=== PATIENT | female | born 1960 | race Caucasian/White ===

== ENCOUNTER 2016-10-13 12:04 | Emergency (ER) | payer MEDICAID ==
[~2016-10-13] VITALS: Ht 157.5 cm; Wt 659.3 kg
[~2016-10-13 12:04] MED LIST: AMLO-27 PO; ATEN50TA2 PO; VENL75TA17 PO
[2016-10-13 12:17] VITALS: BP 146/79
[2016-10-13] MEDS ORDERED: NACL 0.9% 1,000 ML IV SCH (12:29)
[2016-10-13] MEDS ORDERED: ONDANSETRON 4 MG/2 ML VIAL IVP ONE (12:30)
--- NOTE | 2016-10-13 12:31 | NUR ---
Patient to bed 03.
--- NOTE | 2016-10-13 12:33 | NUR ---
Dr. Recinos evaluating patient at bedside.
--- NOTE | 2016-10-13 12:40 | NUR ---
PATIENT PRESENTS TO ED WITH C/O VERTIGO WITH NAUSEA AND HEADACHE X TODAY---- ADDS IS FEELING PALPITATIONS---LEFT FOOT PAIN , INJURED FOOT X4 DAYS AGO HX--MITRAL VALVE PROLAPSE, EMPHYSEMA,PTSD, IBS, HTN, ANXIETY, DEPRESSION RX---COGARD, EFFEXOR, ALBUTEROL, DENIES V/D; SKIN IS PINK/WARM/DRY; AAOX4 WITH EVEN AND STEADY GAIT; LUNGS CLEAR BL; HR EVEN AND REGULAR; PT DENIES ANY FEVER, CP, SOB, OR COUGH AT THIS TIME; PATIENT STATES PAIN OF 6/10 AT THIS TIME; VSS; PATIENT POSITIONED FOR COMFORT; HOB ELEVATED; BEDRAILS UP X2; BED DOWN. ER MD MADE AWARE OF PT STATUS.
--- NOTE | 2016-10-13 12:45 | NUR ---
PATIENT ELOPED FROM FACILITY. DISCHARGE INSTRUCTIONS NOT GIVEN TO PATIENT. DR. GODDARD NOTIFIED.
== END 2016-10-13 12:45 | disposition left against medical advice (07) ==
LOC: MED 12:04
DX: S90.32XA Contusion of left foot, initial encounter (principal); F41.9 Anxiety disorder, unspecified; I10 Essential (primary) hypertension; F17.210 Nicotine dependence, cigarettes, uncomplicated; Z88.2 Allergy status to sulfonamides; Z88.8 Allergy status to other drugs, medicaments and biological substances; W04.XXXA Fall while being carried or supported by other persons, initial encounter; Y93.89 Activity, other specified; Y92.89 Other specified places as the place of occurrence of the external cause; Y99.8 Other external cause status
CPT/HCPCS: 93005; 99283

== ENCOUNTER 2017-10-03 08:53 | Inpatient (IN) | payer MEDICAID ==
[~2017-10-03] VITALS: Ht 154.9 cm; Wt 68.0 kg
--- NOTE | 2017-10-03 08:53 | NUR ---
PATIENT WHEELCHAIR ASSISTED TO BED 10 AT Addendum: 10/03/17 at 0858 by VENUS PATIENT WHEELCHAIR ASSISTED TO BED 10 AT THIS TIME.
[2017-10-03 08:55] VITALS: BP 156/78
--- NOTE | 2017-10-03 09:04 | NUR ---
57 YO F TO ER WITH C/O CP AND GENERALIZED BODY ACHES. ALERT AND ORIENTED, FEBRILE UPON TRIAGE, HOT TO TOUCH, 100.7. PT STATES THAT SHE INJECTED SPEED AND BONG WATER X6HRS AGO, PAIN 10/10. PT DENIES ANY FALLS. PT STATED DEFICATING SELF PRIOR TO ER ARRIVAL. PERRL SLUGGISH REACTION 3MM. LS CLEAR, BS PRESENT AND HYPOACTIVE. HX: MITRAL VALUVE PROLAPS, hysterectomy, emphysema, IBS MED: NONE
[2017-10-03] MEDS ORDERED: KETOROLAC 30 MG/ML VIAL IVP ONE (09:25)
[2017-10-03] MEDS ORDERED: LORazepam 2 MG/ML VIAL IVP ONE (09:25)
[2017-10-03] MEDS ORDERED: ASPIRIN 325 MG TAB PO ONE (09:25)
[2017-10-03 09:47] LABS: BASOPHILS % (AUTO) 0.1 % (0.0-2.0); EOSINOPHILS % (AUTO) 0.1 % (0.0-4.0); HEMATOCRIT 38.1 % (36-48); HEMOGLOBIN 12.4 g/dL (12.0-16.0); LYMPHOCYTES # (AUTO) 0.1 K/uL (2.5-16.5); MEAN CORPUSCULAR HEMOGLOBIN 28 pg (27-31); MEAN CORPUSCULAR HGB CONC 33 g/dL (33-37); MEAN CORPUSCULAR VOLUME 85.3 fL (80-94); MONOCYTES % (AUTO) 0.2 % (1.7-9.3); NEUTROPHILS # (AUTO) 11.3 K/uL (1.8-7.7); NEUTROPHILS % (AUTO) 98.6 % (42.2-75.2); PLATELET COUNT (AUTO) 164 K/uL (140-450); RED BLOOD CELL COUNT(AUTO) 4.47 MIL/uL (4.20-5.40); RED CELL DISTRIBUTION WIDTH 14.6 % (11.6-13.7); WHITE BLOOD COUNT (AUTO) 11.5 K/uL (4.8-10.8)
[2017-10-03] MEDS ORDERED: ACETAMINOPHEN EXTRA STRENGTH 500 MG TAB ONE (09:56)
--- NOTE | 2017-10-03 09:58 | NUR ---
PT MEDICATED WITH TYLENOL 1000MG PER PROTOCOL FOR TEMP OF 100.7.
[2017-10-03 10:04] LABS: ALBUMIN 2.4 g/dL (3.4-5.0); ANION GAP 12.7 (8-16); CREATININE 0.9 mg/dL (0.6-1.3); TOTAL BILIRUBIN 1.1 mg/dL (0.0-1.0)
[2017-10-03 10:05] LABS: POTASSIUM 2.7 mmol/L (3.5-5.1)
[2017-10-03] MEDS ORDERED: POTASSIUM CHLORIDE 10 MEQ TABER PO ONE ×2 (10:10)
[2017-10-03 10:16] LABS: ACETAMINOPHEN 0.8 ug/ml (10-30)
[2017-10-03 10:18] LABS: SALICYLATE < 2.8 mg/dL (2.8-20.0)
[2017-10-03 10:31] LABS: PROTHROMBIN TIME 11.6 secs (10.8-13.4)
[2017-10-03] MEDS ORDERED: NACL 0.9% 2,000 ML IV SCH (10:44)
[2017-10-03] MEDS ORDERED: VANCOMYCIN 1,000 MG in DEXTROSE 5% 250 ML IV ONE (10:45)
[2017-10-03] MEDS ORDERED: POTASSIUM CHL 20 MEQ/NACL 0.9% 1,000 ML IV ONE (10:45)
[2017-10-03] MEDS ORDERED: PIPERACILLIN/TAZOBACTAM 3.375 GM in DEXT 5% MINI-BAG PLUS 50 ML IV ONE (10:45)
[2017-10-03] MEDS ORDERED: MAG SULF 2000 MG/WATER PREMIX 100 ML IV ONE (10:55)
--- NOTE | 2017-10-03 11:15 | NUR ---
# 14 FR STRAIGHT catheter utilizing sterile technique. Immediate return of 200 ml CLEAR YELLOW urine noted. Urine sample collected and sent to lab. Pt tolerated procedure WELL . Addendum: 10/03/17 at 1249 by MEDSnapp[facility]S PER VERBAL ORDER FROM DR MAURICIO
[2017-10-03] MEDS ORDERED: KETOROLAC 30 MG/ML VIAL IVP PRN (11:30)
[2017-10-03] MEDS ORDERED: HYDROcodone/APAP 7.5/325 MG 1 TAB PO PRN (11:30)
[2017-10-03] MEDS ORDERED: ACETAMINOPHEN 325 MG TAB PO PRN (11:30)
[2017-10-03] MEDS ORDERED: DOCUSATE SODIUM 100 MG GELCAP PO PRN (11:30)
[2017-10-03 11:31] LABS: APPEARANCE,URINE CLEAR (CLEAR); BILIRUBIN,URINE NEGATIVE (NEGATIVE); BLOOD, URINE TRACE-I (NEGATIVE); COLOR,URINE YELLOW (YELLOW); LEUKOCYTE ESTERASE ,URINE NEGATIVE (NEGATIVE); NITRITE, URINE NEGATIVE (NEGATIVE); PH,URINE 6.5 (5.0-9.0); UGLUCOSE NEGATIVE (NEGATIVE)
[2017-10-03 11:38] LABS: RBC,URINE 0-5 (RARE) /HPF (0-5); WBC,URINE 0-5 (RARE) /HPF (0-5)
[2017-10-03] MEDS ORDERED: VANCOMYCIN 1,000 MG in DEXTROSE 5% 250 ML IV SCH (11:47)
[2017-10-03] MEDS: NACL 0.9% 1,000 ML IV SCH ×2 (11:59→21:28)
[2017-10-03] MEDS ORDERED: PIPERACILLIN/TAZOBACTAM 3.375 GM VIAL IV ONE (12:13)
--- NOTE | 2017-10-03 12:15 | NUR ---
PT APPEARS TO BE SLEEPING IN NO APPARENT DISTRESS. WILL CONTINUE TO MONITOR
--- NOTE | 2017-10-03 12:25 | NUR ---
RECEIVED PT FROM ER NURSEBRIGIDO VIA GERMÁN, PT IS ASLEEP WITH AN IV LINES ON THE RIGHT FA G.22 AND RIGHT UPPER ARM G.22. ZOSYN AND MAGNESIUM WAS CONTINUED. VITAL SIGNS TAKEN AND IS STABLE. PT HAS IV FLUID OF NS AT 100ML/HR GOING AT A VOLUME OF 100ML. SIDE RAILS ARE UP AND ARM BAND IN PLACED. CALL LIGHT WITHIN REACH AND WILL CONTINUE TO MONITOR.
[2017-10-03 12:28] LABS: CHOL/HDL RATIO 2.5 (1-4.5); HDL CHOLESTEROL 52 mg/dL (40-60); LDL (CALC) 67 mg/dL (60-100); PHOSPHORUS 2.8 mg/dL (2.5-4.9); TRIGLYCERIDES 53 mg/dL (30-150)
[2017-10-03 12:29] LABS: LIPASE 68 U/L (73-393); THYROID STIMULATING HORMONE 0.57 uIU/mL (0.34-3.74)
--- NOTE | 2017-10-03 12:40 | NUR ---
Patient will be admitted to care of DR MIDDLETON. Admited to TELE . Will go to room 121A . Belongings list completed. Report to JULISA ARRIETA .
--- NOTE | 2017-10-03 12:45 | NUR ---
MARISOL FROM LAB CALLED AND REPORTED A CRITICAL LAB RESULT OF THE LACTIC ACID 4.2.
--- NOTE | 2017-10-03 12:50 | NUR ---
REPORTED TO DR. CABELLO ABOUT THE CRITICAL LAB RESULT OF THE PT. DR. CABELLO ACKNOWLEDGED AND SAID THAT HE WILL PLACE AN ORDER.
[2017-10-03 13:01] LABS: BARBITURATE, URINE NEG. ng/ml (NEG <=200); BENZODIAZEPINE, URINE NEG. ng/mL (NEG <=200); CANNABINOID, URINE NEG. ng/mL (NEG <=50); COCAINE, URINE NEG. ng/mL (NEG <=300); OPIATE, URINE NEG. ng/mL (NEG <=2000); PHENCYCLIDINE SCREEN,URINE NEG. ng/mL (NEG <=25)
--- NOTE | 2017-10-03 14:00 | NUR ---
DR. CABELLO SAW AND SPOKE TO THE PT. PT IS NOT FULLY ALERT BUT RESPONDS APPROPRIATELY. NO SIGN OF DISTRESS NOTED. WILL CONTINUE TO MONITOR.
[2017-10-03] MEDS ORDERED: ATENOLOL 50 MG TAB PO SCH (14:08)
[2017-10-03] MEDS ORDERED: ATORVASTATIN 20 MG TAB PO SCH (14:09)
[2017-10-03] MEDS ORDERED: amLODIPine 5 MG TAB PO SCH (14:10)
[2017-10-03] MEDS ORDERED: VENLAFAXINE 37.5 MG TAB PO SCH (14:12)
[2017-10-03] MEDS ORDERED: KCL 20 MEQ/WATER INJ PREMIX 200 ML IV SCH (15:00)
--- NOTE | 2017-10-03 16:30 | NUR ---
PT IS ASLEEP AND VITAL SIGNS TAKEN, NO SIGN OF DISTRESS NOTED. CALL LIGHT WITHIN REACH AND WILL CONTINUE TO MONITOR.
--- NOTE | 2017-10-03 16:55 | NUR ---
ECHO IS BEING DONE TO THE PT. NO SIGN OF DISTRESS NOTED ON THE PT. WILL CONTINUE TO MONITOR.
--- NOTE | 2017-10-03 18:00 | NUR ---
ULTRASOUND OF THE ABDOMEN IS BEING DONE TO THE PT. PT IS ASLEEP AND NO SIGN OF DISTRESS NOTED. WILL MONITOR.
--- NOTE | 2017-10-03 19:20 | NUR ---
ENDORSED PT TO STAVE BOLT EQUALIZER NURSE, DIANE,FOR CONTINUITY OF CARE. PT IS ASLEEP AND RESPIRATIONS EVEN. PT IS STABLE AT THIS TIME.
--- NOTE | 2017-10-03 19:21 | NUR ---
REPORT RECEIVED FROM AM NURSE. PT IN STABLE CONDITION. WILL CONTINUE TO MONITOR.
[2017-10-03 20:00] VITALS: BP 115/76
--- NOTE | 2017-10-03 21:00 | NUR ---
PT HAD BM. AIDED TO BATHROOM. MAURICIO HENNESSY HELPED CLEAN HER UP. COMPLAINED ABOUT IV SITE PAIN DUE TO POTASSIUM. WILL LET HER REST SO THERE IS NO MORE PAIN BEFORE STARTING SECOND ROUND OF POTASSIUM THAT WAS ENDORSED BY AM NURSE.
--- NOTE | 2017-10-03 22:00 | NUR ---
K RIDER WAS ENDORSED BY AM NURSE. K RIDER 20MEQ GIVEN AT 2200. PT DID COMPLAIN ABOUT IV SITE PAIN DUE TO POTASSIUM. WAITED FOR THE PAIN TO GO AWAY BEFORE GIVING SECOND DOSE OF POTASSIUM. USED SECOND IV PUMP INFUSE K WITH NS SO LESS PAIN FELT AT THE IV SITE. PT TOLERATING WELL AND IS SLEEPING. NO COMPLAINTS OF PAIN. WILL CONTINUE TO MONITOR.
[2017-10-03 22:40] LABS: ANION GAP 13.4 (8-16); CARBON DIOXIDE 23.8 mmol/L (21-32); CREATININE 0.8 mg/dL (0.6-1.3); POTASSIUM 3.2 mmol/L (3.5-5.1)
[2017-10-04] VITALS (7 sets, daily range): BP systolic 124–148; BP diastolic 61–82
--- NOTE | 2017-10-04 01:30 | NUR ---
Casey MILLER COMPLETE. PT TOLERATED WELL. PT ASLEEP BUT AROUSABLE. WILL CONTINUE TO MONITOR.
--- NOTE | 2017-10-04 03:00 | NUR ---
PT ASLEEP IN BED WITH BLANKET COVERING HEAD. PT IS AROUSABLE AND DROWSY.
--- NOTE | 2017-10-04 03:30 | NUR ---
RECEIVED PT FROM DIANE FOR CONTINUITY OF CARE
--- NOTE | 2017-10-04 04:00 | NUR ---
AWAKEN PT FOR V/S NO COMPLAINTS.
--- NOTE | 2017-10-04 06:00 | NUR ---
PT RESTING QUIETLY, NO SIGNS OF DISTRESS
[2017-10-04 06:16] LABS: T4 (THYROXINE) 7.3 ug/dL (4.5-12.0)
--- NOTE | 2017-10-04 06:52 | NUR ---
PATIENT HAS BEEN SCREENED AND CATEGORIZED MODERATE NUTRITION RISK. PATIENT WILL BE SEEN WITHIN 3-5 DAYS OF ADMISSION. 10/06/17-10/08/[address]
[2017-10-04] MEDS: NACL 0.9% 1,000 ML IV SCH ×3 (07:28→21:00)
--- NOTE | 2017-10-04 07:30 | NUR ---
REPORT GIVEN TO AM NURSE
--- NOTE | 2017-10-04 07:30 | NUR ---
RECEIVED REPORT FROM NIGHTSHIFT NURSE AT BEDSIDE. PATIENT IS ASLEEP BUT AROUSABLE TO NAME. PATIENT HAS RIGHT HAND 22G WITH 100 ML/HR NS RUNNING. NO DISTRESS NOTED AT THIS TIME. PULSES PALPABLE. NO PAIN NOTED AT THIS TIME. UPDATED BOARD IN PATIENT'S ROOM. CALL LIGHT WITHIN REACH OF PATIENT. WILL CONTINUE TO MONITOR PATIENT.
[2017-10-04 08:12] LABS: HEMATOCRIT 37.2 % (36-48); HEMOGLOBIN 12.3 g/dL (12.0-16.0); MEAN CORPUSCULAR HEMOGLOBIN 28 pg (27-31); MEAN CORPUSCULAR HGB CONC 33 g/dL (33-37); MEAN CORPUSCULAR VOLUME 84.7 fL (80-94); PLATELET COUNT (AUTO) 177 K/uL (140-450); RED BLOOD CELL COUNT(AUTO) 4.39 MIL/uL (4.20-5.40); RED CELL DISTRIBUTION WIDTH 15.1 % (11.6-13.7)
[2017-10-04 08:56] LABS: ANION GAP 14.7 (8-16); CARBON DIOXIDE 21.9 mmol/L (21-32); CREATININE 0.7 mg/dL (0.6-1.3); POTASSIUM 3.6 mmol/L (3.5-5.1)
[2017-10-04] MEDS: VENLAFAXINE 37.5 MG TAB PO SCH (09:23)
[2017-10-04] MEDS: ASPIRIN 81 MG TAB.CHEW PO SCH (09:23)
[2017-10-04] MEDS: LACTOBACILLUS RHAMNOSUS GG 1 EACH CAP PO SCH (09:23)
[2017-10-04] MEDS: ATORVASTATIN 20 MG TAB PO SCH (09:24)
[2017-10-04] MEDS: ATENOLOL 50 MG TAB PO SCH (09:24)
[2017-10-04] MEDS: amLODIPine 5 MG TAB PO SCH (09:24)
--- NOTE | 2017-10-04 09:25 | NUR ---
PATIENT TOOK ALL AM MEDICATIONS. PATIENT TOLERATED WELL. WILL CONTINUE TO MONITOR PATIENT.
[2017-10-04 09:29] LABS: WHITE BLOOD COUNT (AUTO) 38.9 K/uL (4.8-10.8)
[2017-10-04 09:31] LABS: LYMPHOCYTES % (MANUAL) 7 % (20-46); MONOCYTES % (MANUAL) 4 % (5-12)
--- NOTE | 2017-10-04 12:00 | NUR ---
PATIENT SLEEPING AT THIS TIME. WILL CONTINUE TO MONITOR PATIENT.
--- NOTE | 2017-10-04 13:41 | NUR ---
PATIENT RESTING IN BED AT THIS TIME. NO COMPLAINTS OF PAIN. WILL CONTINUE TO MONITOR PATIENT.
[2017-10-04] MEDS ORDERED: VANCOMYCIN PER PHARMACY MC PRN (14:55)
--- NOTE | 2017-10-04 15:22 | NUR ---
PATIENT RESTING IN BED AT THIS TIME. NO DISTRESS NOTED. WILL CONTINUE TO MONITOR PATIENT.
--- NOTE | 2017-10-04 15:55 | NUR ---
NOTIFIED Rossi HORAN ON POSSIBLE CRITICAL FINDINGS ON 10-03-[address] CLINE ON NOTIFYING Rossi HORAN TODAY
[2017-10-04] MEDS: VANCOMYCIN 750 MG in DEXTROSE 5% 250 ML IV SCH (16:39)
--- NOTE | 2017-10-04 17:00 | NUR ---
PATIENT UNDERSTANDS THAT SHE HAS BEEN PUT ON NPO DIET. INFORMED HOSPICE [facility]LA[facility] OF ORDERS. WILL CONTINUE TO MONITOR PATIENT.
--- NOTE | 2017-10-04 19:17 | NUR ---
GAVE REPORT TO NIGHTSHIFT NURSE AT BEDSIDE. PATIENT IN STABLE CONDITION.
--- NOTE | 2017-10-04 20:20 | NUR ---
KWAKU FROM [facility] JUST CALLED AND SAID HIDA SCAN TO BE DONE TOMORROW @10 AM .
--- NOTE | 2017-10-04 22:00 | NUR ---
PT IS ASLEEP. NO S/S OF ANY HEADACHE NOTED. WILL CONITNUE TO MONITOR.
--- NOTE | 2017-10-04 23:05 | NUR ---
DR. HARDING CALLED AND GOT INFORMATION ABOUT PT CONDITION. WITH ORDERS . CARRIED OUT. ROCEPHIN TO START TOMORROW AND IF WITH DIARRHEA SEND STOOL FOR C DIFF.
[2017-10-05] VITALS: BP 146/84
--- NOTE | 2017-10-05 02:23 | NUR ---
PT AWAKE . ASKED IF SHE HAD DIARRHEA. SHE SAID YESTERDAY SHE HAD 2X. SO INSTRUCTED PT THE NEED FOR STOOL. CONTAINER PLACED IN BATHROOM FOR COLLECTION
[2017-10-05] MEDS: NACL 0.9% 1,000 ML IV SCH ×5 (02:39→22:39)
[2017-10-05 04:08] VITALS: BP 143/81
[2017-10-05] MEDS: metroNIDAZOLE 500 MG/NS PREMIX 100 ML IV SCH ×3 (04:24→21:00)
[2017-10-05] MEDS: VANCOMYCIN 750 MG in DEXTROSE 5% 250 ML IV SCH ×2 (05:31→18:02)
--- NOTE | 2017-10-05 06:00 | NUR ---
PT SAID SHE HAD X3 DIARRHEA DURING THE NIGHT. EXPLAINED TO PT THE NEED TO PUT ON CONTACT ISOLATION TO R/O C DIFF . TRANSFERRED TO ROOM 116.
[2017-10-05 07:19] LABS: HEMATOCRIT 39.6 % (36-48); MEAN CORPUSCULAR HEMOGLOBIN 28 pg (27-31); MEAN CORPUSCULAR HGB CONC 33 g/dL (33-37); MEAN CORPUSCULAR VOLUME 84.9 fL (80-94); PLATELET COUNT (AUTO) 184 K/uL (140-450); RED BLOOD CELL COUNT(AUTO) 4.66 MIL/uL (4.20-5.40); RED CELL DISTRIBUTION WIDTH 15.4 % (11.6-13.7)
--- NOTE | 2017-10-05 07:27 | NUR ---
ENDORSED PT IN STABLE CONDITION TO AM NURSE. FOR CONTINUITY OF CARE.
--- NOTE | 2017-10-05 07:27 | NUR ---
RECEIVED PATIENT REPORT FROM NIGHTSHIFT NURSE AT BEDSIDE. PATIENT IS ASLEEP AT THIS TIME BUT AROUSABLE TO NAME. NO DISTRESS NOTED. NO SIGNS OF PAIN. PATIENT IS LAYING IN SUPINE POSITION. PATIENT HAS AN IV ON HER LEFT FOREARM 20 G RUNNING 200 ML/HR OF NORMAL SALINE. PATIENT UNDERSTANDS THAT WE NEED A STOOL SPECIMEN TO RULE OUT C. DIFF. PATIENT UNDERSTANDS THAT IS STILL NPO STATUS. INFORMED PATIENT THAT SHE HAS A DIAGNOSTIC PROCEDURE AT 10:00 AM. PATIENT UNDERSTOOD. CALL LIGHT WITHIN REACH OF PATIENT. UPDATED BOARD IN PATIENT'S ROOM. WILL CONTINUE TO MONITOR PATIENT.
[2017-10-05 07:38] LABS: ANION GAP 13.9 (8-16); CARBON DIOXIDE 21.3 mmol/L (21-32); CREATININE 0.5 mg/dL (0.6-1.3); POTASSIUM 3.2 mmol/L (3.5-5.1)
[2017-10-05 07:44] LABS: MAGNESIUM 1.5 mg/dL (1.8-2.4)
[2017-10-05 08:00] VITALS: BP 165/75
[2017-10-05 08:16] LABS: WHITE BLOOD COUNT (AUTO) 30.5 K/uL (4.8-10.8)
[2017-10-05 08:21] LABS: LYMPHOCYTES % (MANUAL) 11 % (20-46); MONOCYTES % (MANUAL) 7 % (5-12)
[2017-10-05] MEDS: ATENOLOL 50 MG TAB PO SCH (09:00)
[2017-10-05] MEDS: CALCIUM CARB 600 MG TAB PO SCH (09:02)
[2017-10-05] MEDS: LACTOBACILLUS RHAMNOSUS GG 1 EACH CAP PO SCH (09:03)
[2017-10-05] MEDS: VENLAFAXINE 37.5 MG TAB PO SCH (09:03)
[2017-10-05] MEDS: ASPIRIN 81 MG TAB.CHEW PO SCH (09:03)
[2017-10-05] MEDS: amLODIPine 5 MG TAB PO SCH (09:04)
[2017-10-05] MEDS: ATORVASTATIN 20 MG TAB PO SCH (09:05)
[2017-10-05] MEDS: cefTRIAXone 2,000 MG in DEXTROSE 5% 100 ML IV SCH (09:08)
[2017-10-05] MEDS: LORazepam 2 MG/ML VIAL IVP PRN (11:42)
--- NOTE | 2017-10-05 11:42 | NUR ---
PATIENT STATES, "I FEEL ANXIOUS". PATIENT APPEARS ANXIOUS AT THIS TIME. GAVE ATIVAN TO PATIENT.
--- NOTE | 2017-10-05 11:50 | NUR ---
PATIENT LEFT FOR HIDA SCAN PROCEDURE. WILL CONTINUE TO MONITOR PATIENT. Addendum: 10/05/17 at 1307 by Timothy Sharma II, RN PATIENT LEFT THE UNIT IN STABLE CONDITION
[2017-10-05 12:00] VITALS: BP 154/77
[2017-10-05] MEDS ORDERED: MAG SULF 2000 MG/WATER PREMIX 50 ML IV SCH (12:00)
--- NOTE | 2017-10-05 13:15 | NUR ---
PATIENT BACK FROM HIDA SCAN PROCEDURE. PATIENT REMAINS STABLE AT THIS TIME.
[2017-10-05] MEDS: MORPHINE SULFATE 2 MG/ML SYR IVP PRN ×2 (13:22→22:22)
[2017-10-05] MEDS ORDERED: KCL 20 MEQ/WATER INJ PREMIX 200 ML IV SCH (15:00)
--- NOTE | 2017-10-05 15:50 | NUR ---
PATIENT RESTING IN BED. NO COMPLAINTS OF PAIN. NO DISTRESS NOTED. WILL CONTINUE TO MONITOR PATIENT.
[2017-10-05 16:00] VITALS: BP 157/72
--- NOTE | 2017-10-05 19:15 | NUR ---
GAVE REPORT TO NIGHTSHIFT NURSE AT BEDSIDE. PATIENT IN STABLE CONDITION.
--- NOTE | 2017-10-05 19:25 | NUR ---
[facility] IN LOW BED 2 IV SITES ON R ARM 22 G FLUSHED PATENT.PT A0X3. SKIN INTACT . PT IS ABLE TO AMBULATE BY HERSELF TO BATHROOM AND BACK. PT HAD NO BM STOOL CULTURES STILL PENDING. PT C/O 5/10 PAIN IN HER BACK. DVT PRECAURTINS IN PLAC E
[2017-10-05 20:00] VITALS: BP 149/83
[2017-10-05] MEDS: SODIUM PHOS / POTASSIUM PHOS 1 PKT PDR PO SCH (21:00)
[2017-10-05] MEDS: VANCOMYCIN 1GM/DEXT 5% PREMIX 200 ML IV SCH (22:00)
--- NOTE | 2017-10-05 23:00 | NUR ---
PT C/O 810 PAIN IN BACK AND LEGS GIVEN PRN MORPHINE AT 2222. POSITIVE EFFECT NOTED PT WENT TO SLEEP WITH NO C/O VOICED.
[2017-10-06] VITALS: BP 148/82
[2017-10-06] MEDS: NACL 0.9% 1,000 ML IV SCH ×4 (03:24→19:31)
--- NOTE | 2017-10-06 04:30 | NUR ---
PT IN LOW BED PT AMBULATED TO BATHROOM AND BACK NO BM NOTED. SHE HAD NO C/O OF PAIN, AND ALL NEEDS ATTENDED BY STAFF.CALL BEL IN REACH.
[2017-10-06] MEDS: metroNIDAZOLE 500 MG/NS PREMIX 100 ML IV SCH (04:56)
[2017-10-06 06:00] VITALS: BP 129/75
[2017-10-06 08:00] VITALS: BP 171/90
--- NOTE | 2017-10-06 08:45 | NUR ---
RECEIVED REPORT FROM BERNY DENNEY AT BEDSIDE FOR CONTINUITY OF CARE. WILL CONTINUE TO MONITOR.
[2017-10-06] MEDS: amLODIPine 5 MG TAB PO SCH (09:49)
[2017-10-06] MEDS: SODIUM PHOS / POTASSIUM PHOS 1 PKT PDR PO SCH ×2 (09:49→20:34)
[2017-10-06] MEDS: VENLAFAXINE 37.5 MG TAB PO SCH (09:49)
[2017-10-06] MEDS: ATORVASTATIN 20 MG TAB PO SCH (09:50)
[2017-10-06] MEDS: ASPIRIN 81 MG TAB.CHEW PO SCH (09:50)
[2017-10-06] MEDS: ATENOLOL 50 MG TAB PO SCH (09:50)
[2017-10-06] MEDS: LACTOBACILLUS RHAMNOSUS GG 1 EACH CAP PO SCH (09:50)
[2017-10-06] MEDS: CALCIUM CARB 600 MG TAB PO SCH (09:50)
--- NOTE | 2017-10-06 09:55 | NUR ---
PATIENT LYING DOWN IN BED SLEEPING, AROUSABLE BY VOICE. NO DISTRESS NOTED. DENIES ANY PAIN AT THIS TIME. SCHEDULED MEDICATIONS DUE GIVEN. SAFETY MEASURES IN PLACE, CALL LIGHT WITHIN REACH. WILL CONTINUE TO MONITOR.
[2017-10-06] MEDS: cefTRIAXone 2,000 MG in DEXTROSE 5% 100 ML IV SCH (10:04)
[2017-10-06] MEDS: VANCOMYCIN 1GM/DEXT 5% PREMIX 200 ML IV SCH ×2 (11:47→21:05)
--- NOTE | 2017-10-06 11:54 | NUR ---
PATIENT LYING IN BED SLEEPING, AROUSABLE BY VOICE. DENIES PAIN AT THIS TIME. SCHEDULES MEDICATIONS DUE GIVEN. WILL CONTINUE TO MONITOR.
[2017-10-06 12:00] VITALS: BP 176/91
--- NOTE | 2017-10-06 14:00 | NUR ---
PATIENT LYING DOWN IN BED SLEEPING, AROUSABLE BY VOICE. NO DISTRESS NOTED. DENIES ANY PAIN AT THIS TIME. FRIEND AT BEDSIDE. CONDITION UNCHANGED. SAFETY MEASURES IN PLACE, CALL LIGHT WITHIN REACH. WILL CONTINUE TO MONITOR.
[2017-10-06 16:00] VITALS: BP 141/85
--- NOTE | 2017-10-06 16:54 | NUR ---
FAXED INITIAL REVIEW TO [facility] [phone] PHONE [phone] FAXED INITIAL REVIEW TO [facility] [phone]
[2017-10-06] MEDS ORDERED: KETOROLAC 30 MG/ML VIAL IVP PRN (16:55)
[2017-10-06] MEDS ORDERED: APAP/BUTAL/CAFF 325/50/40 MG 1 TAB PO SCH (17:15)
[2017-10-06] MEDS ORDERED: APAP/BUTAL/CAFF 325/50/40 MG 1 TAB PO PRN (17:15)
[2017-10-06] MEDS ORDERED: KCL 20 MEQ/WATER INJ PREMIX 200 ML IV SCH (17:30)
--- NOTE | 2017-10-06 17:39 | NUR ---
PATIENT LYING DOWN IN BED SLEEPING, AROUSABLE BY VOICE. NO DISTRESS NOTED. DENIES ANY PAIN. NO BM YET TODAY. PATIENT AWARE THAT WE NEED A STOOL SAMPLE. SCHEDULED MEDICATIONS DUE GIVEN. SAFETY MEASURES IN PLACE, CALL LIGHT WITHIN REACH. WILL CONTINUE TO MONITOR.
[2017-10-06] MEDS ORDERED: KETOROLAC 15 MG/ML VIAL IVP PRN (18:15)
[2017-10-06] MEDS ORDERED: POTASSIUM CHLORIDE 10 MEQ TABER PO SCH (18:36)
--- NOTE | 2017-10-06 19:20 | NUR ---
ENDORSED PLAN OF CARE TO AUTO BRAKE MECHANIC RN. PATIENT IS IN STABLE CONDITION.
--- NOTE | 2017-10-06 19:30 | NUR ---
ASSUMED CARE OF PATIENT, ASLEEP EASILY AROUSABLE. NO COMPLAINS. COMFORTABLE. CALL LIGHT WITHIN REACH.
--- NOTE | 2017-10-06 20:00 | NUR ---
VITAL SIGNS STABLE. AFEBRILE. NO PAIN AT THIS TIME. PLAN OF CARE DISCUSSED WITH PATIENT, VERBALIZED UNDERSTANDING WELL. CALL LIGHT WITHIN REACH.
[2017-10-06 20:59] VITALS: BP 139/73
--- NOTE | 2017-10-06 21:57 | NUR ---
ASSISTED WITH BRP. BED CHANGE BY SODA TESTER. MEAGHAN BROUSSARD AT BEDSIDE TO SEE PATIENT. CALL LIGHT WITHIN REACH.
[2017-10-06] MEDS ORDERED: MAG SULF 2000 MG/WATER PREMIX 50 ML IV SCH (22:00)
--- NOTE | 2017-10-06 23:37 | NUR ---
ENDORSED CARE AT BEDSIDE WITH FAITH ARRIETA, PATIENT IN STABLE CONDITION.
--- NOTE | 2017-10-06 23:38 | NUR ---
RECEIVED REPORT FROM RN. PT RESTING IN BED. AAOX4. NO S/S OF ACUTE DISTRESS. PT DENIES PAIN. IV SITE PATENT AND INTACT. EXPLAINED TO PT NEED TO COLLECT STOOL SAMPLE. PT VERBALIZED UNDERSTANDING. CALL LIGHT WITHIN REACH. SAFETY MEASURES ENSURED. WILL CONTINUE TO MONITOR.
[2017-10-07] VITALS (7 sets, daily range): BP systolic 121–153; BP diastolic 61–82
[2017-10-07] MEDS: NACL 0.9% 1,000 ML IV SCH ×3 (05:01→15:57)
--- NOTE | 2017-10-07 05:41 | NUR ---
PT SLEEPING IN BED. NO S/S OF ACUTE DISTRESS. WILL CONTINUE TO MONITOR.
--- NOTE | 2017-10-07 07:15 | NUR ---
Received pt from mini shifter nurse, pt sleeping in bed, no signs of acte distress, updated bored and explained plan of care, call light within reach.
--- NOTE | 2017-10-07 07:28 | NUR ---
ENDORSED PLAN OF CARE TO RN. PT REMAINS STABLE.
[2017-10-07 07:58] LABS: BASOPHILS # (AUTO) 0.1 K/uL (0.00-0.22); BASOPHILS % (AUTO) 0.5 % (0.0-2.0); EOSINOPHILS # (AUTO) 0.2 K/uL (0-0.4); EOSINOPHILS % (AUTO) 1.7 % (0.0-4.0); HEMATOCRIT 45.9 % (36-48); HEMOGLOBIN 15.4 g/dL (12.0-16.0); LYMPHOCYTES # (AUTO) 1.9 K/uL (2.5-16.5); LYMPHOCYTES % (AUTO) 18.5 % (20.5-51.1); MEAN CORPUSCULAR HEMOGLOBIN 28 pg (27-31); MEAN CORPUSCULAR HGB CONC 34 g/dL (33-37); MEAN CORPUSCULAR VOLUME 83.7 fL (80-94); MONOCYTES % (AUTO) 9.6 % (1.7-9.3); NEUTROPHILS # (AUTO) 7.2 K/uL (1.8-7.7); NEUTROPHILS % (AUTO) 69.7 % (42.2-75.2); PLATELET COUNT (AUTO) 290 K/uL (140-450); RED BLOOD CELL COUNT(AUTO) 5.48 MIL/uL (4.20-5.40); RED CELL DISTRIBUTION WIDTH 14.6 % (11.6-13.7); WHITE BLOOD COUNT (AUTO) 10.3 K/uL (4.8-10.8)
[2017-10-07] MEDS ORDERED: MAG SULF 2000 MG/WATER PREMIX 50 ML IV SCH (08:00)
[2017-10-07 08:11] LABS: ANION GAP 14.3 (8-16); CARBON DIOXIDE 23.3 mmol/L (21-32); CREATININE 0.5 mg/dL (0.6-1.3); POTASSIUM 3.6 mmol/L (3.5-5.1)
[2017-10-07] MEDS: SODIUM PHOS / POTASSIUM PHOS 1 PKT PDR PO SCH ×2 (09:00→20:58)
[2017-10-07] MEDS ORDERED: SODIUM PHOS / POTASSIUM PHOS 1 PKT PDR PO SCH (09:00)
--- NOTE | 2017-10-07 09:02 | NUR ---
MAGNESIUM IV HELD. PT WAS ADMINISTERED MAGNESIUM ON 10/06/17. PT NEEDS ORDER FOR NEW BLOOD DRAW TO CHECK FOR MAGNESIUM LEVELS. WILL NOTIFY
[2017-10-07] MEDS: ATENOLOL 50 MG TAB PO SCH (09:24)
[2017-10-07] MEDS: LACTOBACILLUS RHAMNOSUS GG 1 EACH CAP PO SCH (09:25)
[2017-10-07] MEDS: VENLAFAXINE 37.5 MG TAB PO SCH (09:25)
[2017-10-07] MEDS: amLODIPine 5 MG TAB PO SCH (09:25)
[2017-10-07] MEDS: ATORVASTATIN 20 MG TAB PO SCH (09:25)
[2017-10-07] MEDS: CALCIUM CARB 600 MG TAB PO SCH (09:25)
[2017-10-07] MEDS: ASPIRIN 81 MG TAB.CHEW PO SCH (09:26)
[2017-10-07] MEDS: cefTRIAXone 2,000 MG in DEXTROSE 5% 100 ML IV SCH (09:28)
--- NOTE | 2017-10-07 11:30 | NUR ---
DIET CHANGED TO REGULAR, EDUCATION PROVIDED ABOUT DUE MEDICATIONS, WILL CONTINUE TO MONITOR, CALL LIGHT WITHIN REACH
--- NOTE | 2017-10-07 13:00 | NUR ---
CALLED [facility] AND SPOKE WITH BRAYAN. HE SAID REVIEW JUST GO TO [facility]. FAXED CONCURRENT REVIEW TO [facility] [phone] PHONE [phone]. I CALLED HILARY AT [facility] AND LEFT MESSAGE ABOUT SNF PLACEMENT.
--- NOTE | 2017-10-07 14:30 | NUR ---
NEW IV FLUID BAG HANGED, NO SIGNS OF DISTRESS, PT DENIES PAIN AT IV SITE, SITE IS CLEAN AND WITHOUT REDNESS. PT IS SLEEPING IN BED, CALL LIGHT WITHIN REACH.
--- NOTE | 2017-10-07 14:46 | NUR ---
SNF Placement Follow Up: Per Red from [facility] , they do not have a contract with [facility] and due to patient's substance abuse they can't accept. Per Massiel from [facility] , they don't have any beds available at this time, stated they would consider accepting patient if they did have beds available. Per Pako from [facility] and Nicole Chaudharita , they do not have any female beds available at this time. Pending response from Cecy at [facility] / . Pending response from Purvi at [facility] / . Addendum: 10/07/17 at 5478 by Zunilda Marie SS correction: Pending response from Cecy at [facility] / , not [facility]
--- NOTE | 2017-10-07 16:30 | NUR ---
PT ASLEEP IN BED, QUESTIONS ANSWERED ABOUT PLAN OF CARE, CALL LIGHT WITHIN REACH, WILL CONTINUE FREQ CHECKS.
--- NOTE | 2017-10-07 17:10 | NUR ---
IV PUMP ALARM HAD HIGH PRESSURE, RE-PRIMED TUBING, SOLVED PROBLEM, EDUCATED ABOUT KEEPING ARM STRAIGHT TO HELP PREVENT HIGH PRESSURE. PATIENT VERBALIZED UNDERSTANDING. WILL CONTINUE TO MONITOR, CALL LIGHT WITHIN REACH.
--- NOTE | 2017-10-07 17:37 | NUR ---
I SPOKE WITH AGATA FROM [facility], PHONE [phone] ABOUT SNF PLACEMENT. I INFORMED HER THAT [facility] WILL TAKE THIS PATIENT, BUT SHE NEEDS AUTH. I GAVE AGATA THE PHONE NUMBER TO [facility] AND SHE SAID SHE WOULD CALL THEM THE AUTH. AGATA CALLED BACK AND SAID SHE GAVE LADI AT [facility] THE AUTH WHICH IS [id number]. AGATA SAID FOR TRANSPORT NO AUTH IS REQUIRED, JUST CALL [facility] [phone]. WAITING FOR DISCHARGE ORDER.
--- NOTE | 2017-10-07 17:48 | NUR ---
Housekeeping Attendant Note: Horace Sam at [facility] / , patient has been accepted and may go to room 24A, accepting physician is , case management social worker Fang baldwin aware.
--- NOTE | 2017-10-07 19:15 | NUR ---
RECEIVED PATIENT LYING ON BED IN COMFORTABLE POSITION. FALL PRECAUTION IMPLEMENTED. DISCUSS TO PATIENT ABOUT THE PLAN OF CARE. CALL LIGHT WITHIN REACH. WILL CONTINUE TO MONITOR.
--- NOTE | 2017-10-07 19:15 | NUR ---
PT SLEEPING IN BED, ENDORSED PT TO BRUSH HOLDER ASSEMBLER NURSE, PT STABLE.
--- NOTE | 2017-10-07 20:42 | NUR ---
pt asked to have her houser that is in the safe.checked the chart and checked w/admitting.they said pt has nothing in the safe and couldn't find any paper in the chart.i explained for pt.she said has money in her pants.so i found her pants in the drawer and gave it to her.she found her money in the pocket of her pant. family at bedside this time.
[2017-10-07] MEDS ORDERED: ATENOLOL 25 MG TAB PO SCH (21:00)
--- NOTE | 2017-10-07 21:10 | NUR ---
TOLD DR. PALMA TO ORDER C. DIFF IN THE SYSTEM. STOOL WAS SENT BY AM NURSE. C.DIFF PAPER WORK GIVEN TO [facility] TO BE ABLE TO PROCESS THE STOOL.
[2017-10-07] MEDS: MORPHINE SULFATE 2 MG/ML SYR IVP PRN (21:17)
--- NOTE | 2017-10-07 21:20 | NUR ---
SEEN PATIENT LYING COMFORTABLE ON BED . CALL LIGHT WITHIN REACH. FALL PRECAUTION IMPLEMENTED. NO S/S OF DISTRESS NOTED AT THIS TIME. WILL CONTINUE TO MONITOR.
--- NOTE | 2017-10-07 23:51 | NUR ---
SEEN PATIENT LYING ON BED IN COMFORTABLE POSITION. NO COMPLAIN OF PAIN AT THIS TIME. CALL LIGHT WITHIN REACH. WILL CONTINUE TO MONITOR.
--- NOTE | 2017-10-08 01:30 | NUR ---
SEEN PATIENT ASLEEP ON BED. CALL LIGHT WITHIN REACH. NO S/S OF DISTRESS NOTED. WILL CONTINUE TO MONITOR.
[2017-10-08] MEDS: NACL 0.9% 1,000 ML IV SCH (02:05)
--- NOTE | 2017-10-08 03:50 | NUR ---
SEEN PATIENT ASLEEP DURING THE ROUND IN COMFORTABLE POSITION. CALL LIGHT WITHIN REACH. WILL CONTINUE TO MONITOR.
[2017-10-08 04:00] VITALS: BP 146/80
--- NOTE | 2017-10-08 04:00 | NUR ---
SEEN PATIENT ASLEEP ON BED. V/S TAKEN AND RECORDED. WILL CONTINUE TO MONITOR.
[2017-10-08 07:21] LABS: RED CELL DISTRIBUTION WIDTH 14.3 % (11.6-13.7); WHITE BLOOD COUNT (AUTO) 9.6 K/uL (4.8-10.8)
--- NOTE | 2017-10-08 07:25 | NUR ---
ENDORSEMENT GIVEN TO AM SHIFT FOR CONTINUITY OF CARE. PATIENT IN STABLE CONDITION.
--- NOTE | 2017-10-08 07:28 | NUR ---
REPORT RECEIVED FROM INDUSTRIAL MAINTENANCE MANAGER, PT SLEEPING QUIETLY IN NAD, RESP EVEN UNLABORED ON RA, SKIN WARM DRY COLOR WNL, PLAN OF CARE REVIEWED, PT DENIES ANY IMMEDIATE NEEDS, ALL SAFETY MEASURES IN PLACE, WILL CONTINUE TO MONITOR.
[2017-10-08 07:30] LABS: HEMATOCRIT 45.4 % (36-48); MEAN CORPUSCULAR HEMOGLOBIN 28 pg (27-31); MEAN CORPUSCULAR HGB CONC 33 g/dL (33-37); MEAN CORPUSCULAR VOLUME 84.2 fL (80-94); PLATELET COUNT (AUTO) 313 K/uL (140-450); RED BLOOD CELL COUNT(AUTO) 5.39 MIL/uL (4.20-5.40)
[2017-10-08 07:46] LABS: ANION GAP 9.4 (8-16); CARBON DIOXIDE 29.4 mmol/L (21-32); CREATININE 0.6 mg/dL (0.6-1.3); POTASSIUM 3.8 mmol/L (3.5-5.1)
[2017-10-08 07:50] LABS: MAGNESIUM 1.7 mg/dL (1.8-2.4); PHOSPHORUS 3.3 mg/dL (2.5-4.9)
[2017-10-08 08:00] VITALS: BP 146/82
[2017-10-08 08:41] LABS: EOSINOPHILS % (MANUAL) 5 % (0-4); LYMPHOCYTES % (MANUAL) 30 % (20-46); MONOCYTES % (MANUAL) 9 % (5-12)
[2017-10-08] MEDS: amLODIPine 5 MG TAB PO SCH (08:46)
[2017-10-08] MEDS: CALCIUM CARB 600 MG TAB PO SCH (08:46)
[2017-10-08] MEDS: ATORVASTATIN 20 MG TAB PO SCH (08:47)
[2017-10-08] MEDS: ATENOLOL 50 MG TAB PO SCH (08:47)
[2017-10-08] MEDS: LACTOBACILLUS RHAMNOSUS GG 1 EACH CAP PO SCH (08:47)
[2017-10-08] MEDS: ASPIRIN 81 MG TAB.CHEW PO SCH (08:48)
[2017-10-08] MEDS: VENLAFAXINE 37.5 MG TAB PO SCH (08:48)
[2017-10-08] MEDS: SODIUM PHOS / POTASSIUM PHOS 1 PKT PDR PO SCH (08:48)
--- NOTE | 2017-10-08 08:48 | NUR ---
AM MEDS GIVEN, PT DAVID PO WELL, WILL CONTINUE TO MONITOR
[2017-10-08] MEDS: cefTRIAXone 2,000 MG in DEXTROSE 5% 100 ML IV SCH (09:34)
[2017-10-08 12:00] VITALS: BP 135/80
[2017-10-08] MEDS: LORazepam 2 MG/ML VIAL IVP PRN (12:12)
--- NOTE | 2017-10-08 12:14 | NUR ---
DR Rossi SNOW CALLED REGARDING ENID, NO NEED TO DO ENID URGENTLY TODAY, IT CAN BE DONE AT LATER TIME AFTER PATIENT IS TRANSFERED TO SNF PER DR Rossi SNOW. NOTIFIED DR NUNES. PT UPDATED WITH PLAN
--- NOTE | 2017-10-08 12:14 | NUR ---
Cupola Operator Note: I met with patient bedside, I explained to her that [facility] has accepted her and plan is to transfer her there today. I emphasized to her the importance of following rules at [facility] regarding no usage of illicit drug/s. She verbalized understanding and is in agreement with transfer to [facility].
--- NOTE | 2017-10-08 12:18 | NUR ---
PT C/O FEELING ANXIOUS, SHAKING LEGS RESTLESSLY, ATIVAN GIVEN PER PRN ORDER, WILL CONTINUE TO MONITOR.
--- NOTE | 2017-10-08 12:44 | NUR ---
process safety manager arranged transportation for patient to go to [facility] room 24 A and product picker at 2 pm. confermation number
--- NOTE | 2017-10-08 12:48 | NUR ---
confirmation number for transport is [id number]
[2017-10-08] MEDS ORDERED: LACT10CA PO (13:10)
[2017-10-08] MEDS ORDERED: ATOR20TA40 PO (13:10)
[2017-10-08] MEDS ORDERED: ROC2I IV (13:10)
[2017-10-08] MEDS ORDERED: ASPI81CT95 PO (13:10)
--- NOTE | 2017-10-08 13:17 | NUR ---
PT NOTES CHART REVIEWED AND CLEARED FOR PT BY RN. 1ST ATTEMPT TO SEE PATIENT IN MORNING, FOUND SUPINE SLEEPING AND EASILY AROUSED. PATIENT ASKS IF POSSIBLE TO RETURN AT LATER TIME. NO PAIN OR COMPLAINTS AT THIS TIME, "GIVE ME TIME" PER PATIENT. CALL LIGHT IN REACH. RETURNED TO PATIENTS ROOM TO ATTEMPT THERAPY, BUT CURRENTLY SLEEPING AND DIFFICULT TO AROUSE. PATIENT DIFFICULT TO AROUSE, OPENS EYES AND MUMBLES "NO" AND QUICKLY FALLS ASLEEP. CALL LIGHT IN REACH, RN MADE AWARE. WILL FOLLOW UP PATIENT TOMORROW IF PRESENT, PENDING POSSIBLE D/C LATER TODAY. Addendum: 10/08/17 at 1447 by Apolonia Nice PT PHYSICAL THERAPY CO-SIGN The Physical Therapy Progress Notes documented by Reinforcing Steel Worker Wire Mesh have been reviewed. Reviewed/Co-Signed by: Apolonia Nice PT Documentation Done by: DEEPIKA MCDOWELL PTA DESPITE EDUCATION NO CONSENT FOR CARE GIVEN, PER CHART PATIENT DC TO SNF TODAY.
--- NOTE | 2017-10-08 13:58 | NUR ---
CALLED TO [facility] [phone], REPORT GIVEN TO JAZLYN GREEN TO BE PICKED UP AT 1430.
--- NOTE | 2017-10-08 14:06 | NUR ---
10/08/17 RD INITIAL ASSESSMENT COMPLETED PLEASE REFER TO NUTRITION ASSESSMENT UNDER CARE ACTIVITY FOR ESTIMATED NUTRITIONAL NEEDS. 1. CONTINUE NPO DIET MEDICALLY NECESSARY 2. RECOMMEND REGULAR DIET WHEN ADVANCING TO PO DIET. 3. RD TO FOLLOW-UP 3-5 DAYS, MODERATE RISK UMBERTO VILLAR, RD
--- NOTE | 2017-10-08 14:30 | NUR ---
DISCHARG/TRANSFER INSTRUCTION GIVEN AND EXPLAINED TO PT, PT VERBALIZED FULL UNDERSTANDING, TRANSPORTATION TO [facility] ETA 1430, PT AGREES WITH PLAN, WILL CONTINUE TO MONITOR.
--- NOTE | 2017-10-08 15:08 | NUR ---
TRANSPORTATION FROM IN CARE LOGISTIC HERE TO SHOE MAKER PT, REPORT GIVEN, COPY OF CHART GIVEN, PT GOT UP FROM TO STRETCH WITHOUT ASSIST, DC TO [facility] AT THIS TIME.
== END 2017-10-08 15:08 | DRG 720 ==
LOC: MED 08:53 → MTU 11:28
PROVIDERS: ADMIT General Practice; ATTEND General Practice
DX: A40.8 Other streptococcal sepsis (principal); I33.0 Acute and subacute infective endocarditis; E43 Unspecified severe protein-calorie malnutrition; E83.42 Hypomagnesemia; K83.8 Other specified diseases of biliary tract; E86.0 Dehydration; E87.6 Hypokalemia; F15.90 Other stimulant use, unspecified, uncomplicated; F32.9 Major depressive disorder, single episode, unspecified; F41.9 Anxiety disorder, unspecified; I35.1 Nonrheumatic aortic (valve) insufficiency; T43.621A Poisoning by amphetamines, accidental (unintentional), initial encounter; R74.0 Nonspecific elevation of levels of transaminase and lactic acid dehydrogenase [LDH]; F19.10 Other psychoactive substance abuse, uncomplicated; I35.8 Other nonrheumatic aortic valve disorders; F17.210 Nicotine dependence, cigarettes, uncomplicated; B95.4 Other streptococcus as the cause of diseases classified elsewhere; I10 Essential (primary) hypertension; Z88.2 Allergy status to sulfonamides; Z59.0 Homelessness; Z91.041 Radiographic dye allergy status; Z68.28 Body mass index [BMI] 28.0-28.9, adult; Y92.89 Other specified places as the place of occurrence of the external cause
CPT/HCPCS: 36415; 71045; 76700; 78445; 80048; 80053; 80202; 80305; 81001; 82140; 82550; 83036; 83605; 83615; 83690; 83735; 83880; 84100; 84436; 84443; 84479; 84484; 85025; 85610; 85730; 87040; 87070; 87081; 87086; 93005; 96365; 96375; 97110; 99291; G0480; G0482; J0696; J1885; J2060; J2270; J2543; J3370; J3475; J3480; J3490; J7030; J7060; Q0092

== ENCOUNTER 2017-11-01 00:54 | Emergency (ER) | payer MEDICAID ==
[~2017-11-01] VITALS: Ht 154.9 cm; Wt 66.3 kg
[~2017-11-01 00:54] MED LIST changes: +ASPI81CT95 PO; +ATOR20TA40 PO; +LACT10CA PO; +ROC2I IV
[2017-11-01 00:58] VITALS: BP 140/89
--- NOTE | 2017-11-01 01:08 | NUR ---
PATIENT PRESENTS TO ED C/O MISSING ABX DOSAGE TODAY. PATIENT STATES SHE WAS STAYING AT A SNF AND LEFT TODAY, SMOKED METHAMPHETAMINE, AND TRIED TO RETURN TO THE SNF. WHEN SHE TRIED TO RETURN HER BED WAS GIVEN AWAY. PT DENIES N/V/D; SKIN IS PINK/WARM/DRY; AAOX4 WITH EVEN AND STEADY GAIT; LUNGS CLEAR BL; HR EVEN AND REGULAR; PT DENIES ANY FEVER, CP, SOB, OR COUGH AT THIS TIME; PATIENT STATES PAIN OF 0/10 AT THIS TIME; VSS; PATIENT POSITIONED FOR COMFORT; HOB ELEVATED; BEDRAILS UP X1; BED DOWN. ER MD MADE AWARE OF PT STATUS.
[2017-11-01 02:06] VITALS: BP 144/86
--- NOTE | 2017-11-01 02:06 | NUR ---
PATIENT HAS BEEN SEEN AND EVALUTED BY DR. KELLER. PATIENT LEFT WITHOUT DISCHARGE PAPERWORK.
== END 2017-11-01 02:06 | disposition home or self-care (01) ==
LOC: MED 00:54
DX: F15.10 Other stimulant abuse, uncomplicated (principal); I10 Essential (primary) hypertension; Z79.899 Other long term (current) drug therapy; Z88.2 Allergy status to sulfonamides; Z88.8 Allergy status to other drugs, medicaments and biological substances
CPT/HCPCS: 99283

== ENCOUNTER 2018-05-22 02:49 | Emergency (ER) | payer MEDICAID ==
[~2018-05-22] VITALS: Ht 154.9 cm; Wt 68.0 kg
[~2018-05-22 02:49] MED LIST changes: -AMLO-27 PO; +AMLO10TA4 PO
[2018-05-22 02:52] VITALS: BP 137/76
[2018-05-22] MEDS: KETOROLAC 60 MG/2 ML VIAL IM ONE (03:11)
[2018-05-22 03:42] VITALS: BP 137/76
== END 2018-05-22 03:42 | disposition home or self-care (01) ==
LOC: MED 02:49
DX: M79.632 Pain in left forearm (principal); J44.9 Chronic obstructive pulmonary disease, unspecified; I10 Essential (primary) hypertension; F17.200 Nicotine dependence, unspecified, uncomplicated; Z90.49 Acquired absence of other specified parts of digestive tract; Z90.710 Acquired absence of both cervix and uterus; Z79.82 Long term (current) use of aspirin; Z79.899 Other long term (current) drug therapy
CPT/HCPCS: 73090; 96372; 99283; J1885; Q0092

== ENCOUNTER 2018-09-13 00:24 | Emergency (ER) | payer MEDICAID ==
[~2018-09-13] VITALS: Ht 154.9 cm; Wt 75.3 kg
[2018-09-13 00:29] VITALS: BP 130/76
--- NOTE | 2018-09-13 00:35 | NUR ---
Pt taken to bed 12.
--- NOTE | 2018-09-13 00:45 | NUR ---
PT IS A 58 Y/O FEMALE WHO PRESENTS TO THE ED C/O PAINFUL URINATION. PT STATES THAT PAIN IS UNBEARABLE AND IT IS DIFFICULT TO URINATE. PT REPORST 10/10 BURNING PAIN ON URINATION. PT ALSO REPORTS COUGH, LUNG SOUNDS CTA. PT DENIES CP, N/V/D. PT AWAKE AND ALERT, RR EVEN/UNLABORED. PT REPOSITIONED FOR COMFORT, BED IN LOWEST POSITION. WILL CONTINUE TO MONITOR. HX HTN, COPD, EMPHYSEMA, IBS, MITRAL VALVE PROLAPSE ALLERGIES--IODINE, SULFA
[2018-09-13 01:16] LABS: APPEARANCE,URINE HAZY (CLEAR); BILIRUBIN,URINE NEGATIVE (NEGATIVE); BLOOD, URINE 1+ (NEGATIVE); COLOR,URINE YELLOW (YELLOW); LEUKOCYTE ESTERASE ,URINE TRACE (NEGATIVE); NITRITE, URINE NEGATIVE (NEGATIVE); UGLUCOSE NEGATIVE (NEGATIVE)
[2018-09-13 01:32] LABS: RBC,URINE 0-5 /HPF (0-5)
[2018-09-13 01:33] LABS: CALCIUM OXALATE CRYSTALS,UR 0-10 /HPF (None Seen)
--- NOTE | 2018-09-13 01:56 | NUR ---
Patient discharged with v/s stable. Written and verbal after care instructions given and explained. Patient alert, oriented and verbalized understanding of instructions. Ambulatory with steady gait. All questions addressed prior to discharge. ID band removed. Patient advised to follow up with PMD. Rx of NITROFURATONIN given. Patient educated on indication of medication including possible reaction and side effects. Opportunity to ask questions provided and answered.
[2018-09-13 01:57] VITALS: BP 124/69
== END 2018-09-13 01:57 | disposition home or self-care (01) ==
LOC: MED 00:24
DX: N39.0 Urinary tract infection, site not specified (principal); J44.9 Chronic obstructive pulmonary disease, unspecified; I10 Essential (primary) hypertension; F31.9 Bipolar disorder, unspecified; F41.9 Anxiety disorder, unspecified; Z88.2 Allergy status to sulfonamides; Z88.8 Allergy status to other drugs, medicaments and biological substances; Z79.82 Long term (current) use of aspirin; Z79.2 Long term (current) use of antibiotics; Z79.899 Other long term (current) drug therapy
CPT/HCPCS: 81001; 81025; 87086; 99283

== ENCOUNTER 2018-09-14 20:41 | Emergency (ER) | payer MEDICAID ==
[~2018-09-14] VITALS: Ht 160 cm; Wt 76.2 kg
--- NOTE | 2018-09-14 21:00 | NUR ---
PT AMBULATED TO HE RESTOOM AND THEN PUT TO MARY BETH, ISMAS
[2018-09-14 21:03] VITALS: BP 159/86
--- NOTE | 2018-09-14 22:21 | NUR ---
PT AMBULATED TO BED 02.
--- NOTE | 2018-09-14 22:25 | NUR ---
58 y/o F presented to ED xiomara c/o generalized body aches x 1 day. AAOx4. Pt stated, " my body hurts. i think its because of the new antibiotic i am taking." bed in lowest position. ERMD notified. Will continue to monitor.
[2018-09-14] MEDS ORDERED: KETOROLAC 60 MG/2 ML VIAL IM ONE (23:10)
--- NOTE | 2018-09-14 23:47 | NUR ---
Patient discharged with v/s stable. Written and verbal after care instructions given and explained. Patient alert, oriented and verbalized understanding of instructions. Ambulatory with steady gait. All questions addressed prior to discharge. ID band removed. Patient advised to follow up with PMD. Rx of Motrin and Keflex given. Patient educated on indication of medication including possible reaction and side effects. Opportunity to ask questions provided and answered.
== END 2018-09-14 23:44 | disposition home or self-care (01) ==
LOC: MED 20:41
DX: N39.0 Urinary tract infection, site not specified (principal); J44.9 Chronic obstructive pulmonary disease, unspecified; I10 Essential (primary) hypertension; F41.9 Anxiety disorder, unspecified; Z88.2 Allergy status to sulfonamides; Z88.8 Allergy status to other drugs, medicaments and biological substances; Z79.82 Long term (current) use of aspirin; Z79.899 Other long term (current) drug therapy
CPT/HCPCS: 81002; 81025; 96372; 99283; J1885

== ENCOUNTER 2018-11-25 18:05 | Emergency (ER) | payer MEDICAID ==
[~2018-11-25] VITALS: Ht 154.9 cm; Wt 73.2 kg
[2018-11-25 18:06] VITALS: BP 148/83
--- NOTE | 2018-11-25 18:22 | NUR ---
AAOX4. WAIT AT LOBBY.
--- NOTE | 2018-11-25 18:53 | NUR ---
PT AMBULATED TO BED 02.
--- NOTE | 2018-11-25 19:00 | NUR ---
PATIENT PRESENTED TODAY AT THE ED C/O PAIN IN THE LEFT INNER THIGH THAT RADIATES TO LEFT INNER LOWER LEG 10/10 FOR 3 WEEKS, DENIES ANY TRAUMA OR INJURY, NO REDNESS OR SWELLING NOTED AT THE SITE, AMBULATORY, AAOX4, RR EVEN AND UNLABORED, NO DISTRESS, BED IN LOWEST POSITION, ED MD DR. COYLE MADE AWARE, WILL CONTINUE TO MONITOR CLOSELY. MED HX:ASTHMA, MITRAL VALVE PROLASE, COPD, DEPRESSION, ANXIETY, PTSD, BIPOLAR, HTN
--- NOTE | 2018-11-25 19:09 | NUR ---
XRAY AT BEDSIDE.
--- NOTE | 2018-11-25 19:25 | NUR ---
ASSUMED CARE. RECEIVED ALERT,ORIENTED. NOT IN ACUTE DISTRESS. VERBALIZED LEFT THIGH/LEG PAIN (11/11). SEEN BY ER-MD. X-RAY DONE.
[2018-11-25] MEDS ORDERED: KETOROLAC 60 MG/2 ML VIAL IM ONE (19:35)
--- NOTE | 2018-11-25 19:46 | NUR ---
VENOUS DOPPLER OF LEFT LOWER EXTREMITY BEING DONE AT BEDSIDE. TORADOL 60 MG IM ORDERED FOR PAIN BUT PT. REQUESTED RN TO GIVE IT AFTER PROCEDURE.
--- NOTE | 2018-11-25 19:50 | NUR ---
US AT BEDSIDE FOR INTERVENTION.
--- NOTE | 2018-11-25 20:01 | NUR ---
TORADOL 60 MG IM OFFRED BUT PATIENT REFUSED. WILL NOTIFY
--- NOTE | 2018-11-25 20:55 | NUR ---
GABY WRAP APPLIED TO THE LEFT THIGH/LEG. CRUTCHES, TRAINING GIVEN BY JUAN DIEGO.
--- NOTE | 2018-11-25 21:12 | NUR ---
DISCHARGED STABLE AND IMPROVED. PRESCRIPTION, VERBAL AND WRITTEN AFTERCARE INSTRUCTIONS GIVEN. VERBALIZED UNDERSTANDING.
[2018-11-25 21:26] VITALS: BP 155/86
== END 2018-11-25 21:12 | disposition home or self-care (01) ==
LOC: MED 18:05
DX: S76.912A Strain of unspecified muscles, fascia and tendons at thigh level, left thigh, initial encounter (principal); I10 Essential (primary) hypertension; J45.909 Unspecified asthma, uncomplicated; J44.9 Chronic obstructive pulmonary disease, unspecified; K21.9 Gastro-esophageal reflux disease without esophagitis; F41.9 Anxiety disorder, unspecified; F31.9 Bipolar disorder, unspecified; F43.10 Post-traumatic stress disorder, unspecified; Z79.899 Other long term (current) drug therapy; Z88.2 Allergy status to sulfonamides; Z88.8 Allergy status to other drugs, medicaments and biological substances; Z79.1 Long term (current) use of non-steroidal anti-inflammatories (NSAID); Z79.82 Long term (current) use of aspirin; X58.XXXA Exposure to other specified factors, initial encounter; Y93.89 Activity, other specified; Y92.89 Other specified places as the place of occurrence of the external cause; Y99.8 Other external cause status
CPT/HCPCS: 73552; 93971; 99284; Q0092; J1885

== ENCOUNTER 2019-01-21 01:30 | Emergency (ER) | payer MEDICAID ==
[~2019-01-21] VITALS: Ht 154.9 cm; Wt 72.6 kg
[2019-01-21 01:35] VITALS: BP 122/60
[2019-01-21 02:45] LABS: APPEARANCE,URINE CLOUDY (CLEAR); BILIRUBIN,URINE NEGATIVE (NEGATIVE); BLOOD, URINE 1+ (NEGATIVE); COLOR,URINE YELLOW (YELLOW); LEUKOCYTE ESTERASE ,URINE 2+ (NEGATIVE); NITRITE, URINE NEGATIVE (NEGATIVE); UGLUCOSE NEGATIVE (NEGATIVE)
[2019-01-21 02:51] LABS: BARBITURATE, URINE NEG. ng/ml (NEG <=200); BENZODIAZEPINE, URINE NEG. ng/mL (NEG <=200); CANNABINOID, URINE NEG. ng/mL (NEG <=50); COCAINE, URINE NEG. ng/mL (NEG <=300); OPIATE, URINE NEG. ng/mL (NEG <=2000); PHENCYCLIDINE SCREEN,URINE NEG. ng/mL (NEG <=25)
[2019-01-21 03:12] LABS: RBC,URINE TOO NUMEROUS TO COUN /HPF (0-5); WBC,URINE TOO MANY TO COUNT /HPF (0-5)
[2019-01-21 03:49] VITALS: BP 115/66
[2019-01-23 06:08] LABS: CHLAMYDIA TRACHOMATIS AMP DNA Negative (Negative)
== END 2019-01-21 03:49 | disposition home or self-care (01) ==
LOC: MED 01:30
DX: N39.0 Urinary tract infection, site not specified (principal); L98.499 Non-pressure chronic ulcer of skin of other sites with unspecified severity; J44.9 Chronic obstructive pulmonary disease, unspecified; K21.9 Gastro-esophageal reflux disease without esophagitis; I10 Essential (primary) hypertension; Z90.710 Acquired absence of both cervix and uterus; Z79.899 Other long term (current) drug therapy; Z88.2 Allergy status to sulfonamides; Z88.8 Allergy status to other drugs, medicaments and biological substances
CPT/HCPCS: 36415; 80305; 81001; 81025; 87086; 87186; 87491; 99283

== ENCOUNTER 2019-02-15 16:05 | Emergency (ER) | payer MEDICAID ==
[~2019-02-15] VITALS: Ht 154.9 cm; Wt 73.3 kg
[2019-02-15 16:27] VITALS: BP 129/79
--- NOTE | 2019-02-15 16:27 | NUR ---
PT AMBULATES BACK TO THE LOBBY
--- NOTE | 2019-02-15 16:45 | NUR ---
DENIES FEVER/CHILLS.
--- NOTE | 2019-02-15 16:45 | NUR ---
58/F PRESENTS TO ED, C/O DYSURIA, URINARY FREQUENCY AND URGENCY, X3 DAYS. REPORTS SUPRAPUBIC AND LOWER BACK PAIN. REPORTS THAT SHE WAS RECENTLY TREATED LAST MONTH WITH KEFLEX FOR UTI. PT AWAKE AND ALERT, SKIN NORMAL COLOR WARM AND DRY, RR EVEN AND UNLABORED. HX COPD, HTN, MITRAL PROLAPSE, IBS RX EFFEXOR, ATENOLOL, NORVASC, ATIVAN
[2019-02-15] MEDS ORDERED: cefTRIAXone 1,000 MG in LIDOCAINE MPF 1% 2.1 ML IM ONE (17:00)
[2019-02-15] MEDS ORDERED: ACETAMINOPHEN EXTRA STRENGTH 500 MG TAB PO ONE (17:00)
[2019-02-15 17:28] VITALS: BP 118/75
--- NOTE | 2019-02-15 17:29 | NUR ---
Patient discharged with v/s stable. Written and verbal after care instructions given and explained. Patient alert, oriented and verbalized understanding of instructions. Ambulatory with steady gait. All questions addressed prior to discharge. ID band removed. Patient advised to follow up with PMD. Rx of CIPRO, IBUPROFEN given. Patient educated on indication of medication including possible reaction and side effects. Opportunity to ask questions provided and answered.
[2019-02-15 18:19] LABS: APPEARANCE,URINE CLOUDY (CLEAR); BILIRUBIN,URINE NEGATIVE (NEGATIVE); BLOOD, URINE TRACE-I (NEGATIVE); COLOR,URINE YELLOW (YELLOW); LEUKOCYTE ESTERASE ,URINE 1+ (NEGATIVE); NITRITE, URINE NEGATIVE (NEGATIVE); UGLUCOSE NEGATIVE (NEGATIVE)
[2019-02-15 18:46] LABS: RBC,URINE 0-5 /HPF (0-5); WBC,URINE 80-100 /HPF (0-5)
== END 2019-02-15 17:29 | disposition home or self-care (01) ==
LOC: MED 16:05
DX: N12 Tubulo-interstitial nephritis, not specified as acute or chronic (principal); J44.9 Chronic obstructive pulmonary disease, unspecified; K21.9 Gastro-esophageal reflux disease without esophagitis; I10 Essential (primary) hypertension; Z79.2 Long term (current) use of antibiotics; Z79.82 Long term (current) use of aspirin; Z79.899 Other long term (current) drug therapy; Z88.8 Allergy status to other drugs, medicaments and biological substances; Z88.2 Allergy status to sulfonamides; Z86.79 Personal history of other diseases of the circulatory system
CPT/HCPCS: 81001; 81025; 87086; 96372; 99283; J0696; J2001

== ENCOUNTER 2019-04-23 03:07 | Emergency (ER) | payer MEDICAID ==
[~2019-04-23] VITALS: Ht 154.9 cm; Wt 72.6 kg
[2019-04-23 03:07] VITALS: BP 130/60
--- NOTE | 2019-04-23 03:07 | NUR ---
TO BED # 09 AMBULATORY
--- NOTE | 2019-04-23 03:25 | NUR ---
DR. ZULEMA THAKUR AT BEDSIDE.
--- NOTE | 2019-04-23 03:26 | NUR ---
58 YO F BIB PRESENTS TO ED C/O 11/11 MEDIAL ANKLE PAIN AND SWELLING FROM POSSIBLE BUG BITE X 3 DAYS. SHINY REDNESS NOTED AROUND SITE WITH SOME MODERATE SWELLING. POSSIBLE CELLULITIS. DENIES RECENT TRAUMA/INJURY. DENIES FEVER, CHILLS, NVD.
[2019-04-23 03:31] VITALS: BP 118/69
--- NOTE | 2019-04-23 03:31 | NUR ---
Patient discharged with v/s stable. Written and verbal after care instructions given and explained. Patient alert, oriented and verbalized understanding of instructions. Ambulatory with steady gait. All questions addressed prior to discharge. ID band removed. Patient advised to follow up with PMD. Rx of TREVOR DC ZOFRAN WAS given. Patient educated on indication of medication including possible reaction and side effects. Opportunity to ask questions provided and answered. PT STATED PAIN LEVEL HAD DECREASED TO 3/10 PRIOR TO D/C
== END 2019-04-23 03:31 | disposition home or self-care (01) ==
LOC: MED 03:07
DX: L03.116 Cellulitis of left lower limb (principal); J44.9 Chronic obstructive pulmonary disease, unspecified; K21.9 Gastro-esophageal reflux disease without esophagitis; I10 Essential (primary) hypertension; Z90.710 Acquired absence of both cervix and uterus; Z79.2 Long term (current) use of antibiotics; Z79.899 Other long term (current) drug therapy; Z79.82 Long term (current) use of aspirin; Z88.2 Allergy status to sulfonamides; Z88.8 Allergy status to other drugs, medicaments and biological substances
CPT/HCPCS: 99283

== ENCOUNTER 2019-06-01 02:57 | Emergency (ER) | payer MEDICAID ==
[~2019-06-01] VITALS: Ht 154.9 cm; Wt 72.6 kg
[2019-06-01 02:59] VITALS: BP 159/73
[2019-06-01] MEDS ORDERED: ONDANSETRON 4 MG/2 ML VIAL IVP ONE (03:20)
[2019-06-01] MEDS ORDERED: NACL 0.9% 1,000 ML IV ONE (03:20)
[2019-06-01] MEDS ORDERED: ALBUTEROL SULFATE/IPRATROPIU 3 ML SOL IH ONE (03:20)
== END 2019-06-01 04:56 | disposition left against medical advice (07) ==
LOC: MED 02:57
DX: K58.1 Irritable bowel syndrome with constipation (principal); J44.0 Chronic obstructive pulmonary disease with (acute) lower respiratory infection; K21.9 Gastro-esophageal reflux disease without esophagitis; I10 Essential (primary) hypertension; I51.89 Other ill-defined heart diseases; Z88.8 Allergy status to other drugs, medicaments and biological substances; Z88.2 Allergy status to sulfonamides; Z79.899 Other long term (current) drug therapy
CPT/HCPCS: 71045; 74018; 93005; 94640; 99284; J7620

== ENCOUNTER 2021-04-20 03:22 | Emergency (ER) | payer MEDICAID ==
[~2021-04-20] VITALS: Ht 157.5 cm; Wt 74.8 kg
[~2021-04-20 03:22] MED LIST changes: -AMLO10TA4 PO; +AMLO10TA89 PO
[2021-04-20 03:25] VITALS: BP 127/68
--- NOTE | 2021-04-20 03:25 | NUR ---
to bed ambulatory
--- NOTE | 2021-04-20 03:25 | NUR ---
ALERT AND ORIENTED X4. PT STATES THAT SHE WAS EATING BREAKFAST ON 04/19/2021 AND HER RIGHT HAND INSTANTLY STARTED TO HURT. PT REPORTS PAIN WAS SHOOTING FROM THE MIDDLE OF HER RIGHT PALM TO THE TIPS OF HER FINGERS AND DOWN INTO RIGHT WRIST. PT STATES THAT SHE HAS TO APPLY PRESSURE TO THE AREA TO MAKE THE PAIN MANAGEABLE. PT REPORTS THAT WHEN SHE WENT TO BED LAST NIGHT SHE WOKE UP OUT OF HER SLEEP DUE TO THE PAIN AND DISCOMFORT. PT REPORTS THAT SINCE BEING ASLEEP, HER HAND IS NOW SWOLLEN AND THE PAIN HAS INTENSIFIED GREATLY, RATES PAIN 8/10. PT DENIES ANY INJURY OR TRAUMA TO THE RIGHT HAND.
--- NOTE | 2021-04-20 03:30 | NUR ---
RADIOLOGY AT BEDSIDE.
[2021-04-20] MEDS ORDERED: predniSONE 20 MG TAB PO ONE (04:55)
[2021-04-20] MEDS ORDERED: KETOROLAC 60 MG/2 ML VIAL IM ONE (04:55)
--- NOTE | 2021-04-20 05:00 | NUR ---
RN TO PT ROOM TO ADMINISTER MEDICATION. PT REFUSED TORADOL SHOT STATING THAT GETTING IM INJECTIONS BRINGS HER "ANXIETY LEVELS UP". PT INQUIRED ABOUT PO MEDICATION INSTEAD. RN ALERTED MD OF PT CONCERNS, MD PROVIDED ORDER FOR PO PAIN MANAGEMENT. PLEASE SEE EMAR.
[2021-04-20] MEDS ORDERED: IBUPROFEN 800 MG TAB PO ONE (05:05)
[2021-04-20] MEDS ORDERED: IBUP-2218 PO (05:30)
[2021-04-20] MEDS ORDERED: PRED20TA5 PO (05:30)
[2021-04-20 05:42] VITALS: BP 127/68
--- NOTE | 2021-04-20 05:43 | NUR ---
Patient discharged with v/s stable. Written and verbal after care instructions given and explained. Patient alert, oriented and verbalized understanding of instructions. Ambulatory with steady gait. All questions addressed prior to discharge. ID band removed. Patient advised to follow up with PMD. Rx of MOTRIN AND PREDNISONE given. Patient educated on indication of medication including possible reaction and side effects. Opportunity to ask questions provided and answered.
== END 2021-04-20 05:43 | disposition home or self-care (01) ==
LOC: MED 03:22
DX: M79.89 Other specified soft tissue disorders (principal); J44.9 Chronic obstructive pulmonary disease, unspecified; K21.9 Gastro-esophageal reflux disease without esophagitis; I10 Essential (primary) hypertension; Z79.82 Long term (current) use of aspirin; Z79.899 Other long term (current) drug therapy; Z88.2 Allergy status to sulfonamides; Z88.8 Allergy status to other drugs, medicaments and biological substances
CPT/HCPCS: 73130; 99283; J7512; J1885

== ENCOUNTER 2022-04-12 12:11 | Emergency (ER) | payer MEDICAID ==
[~2022-04-12] VITALS: Ht 154.9 cm; Wt 72.6 kg
[~2022-04-12 12:11] MED LIST changes: +IBUP-2218 PO; +PRED20TA5 PO
[2022-04-12 12:21] VITALS: BP 126/51
--- NOTE | 2022-04-12 12:25 | NUR ---
PT AMBULATED TO ER BED 5
[2022-04-12] MEDS ORDERED: IBUPROFEN 600 MG TAB PO ONE (12:40)
--- NOTE | 2022-04-12 13:18 | NUR ---
61YO FEMALE PT C/O SHARP L LEG PAIN X2DAYS. PRESENTS WITH NON PITTING REDDENED SWELLING IN LL LEG . SWELLING ALSO NOTED IN R LEG. CAP REFILL <3 THROUGHOUT. STATES INITIAL PAIN AND SWELLING STARTED AFTER POSSIBLE SPIDER BITE. +DRY COUGH, +CHILLS . NOTES FEELING " CONFUSED " AND LETHARGIC. DENIES TAKING MEDICATION ,CHEST PAIN, N/V/D, FEVER ,SOB OR ANYONE SICK AT HOME. PT AAOX4. HX HTN, IBS, PTSD, MITRAL VALVE PROLAPSE ALLERGIES: SULFA, IODINE
[2022-04-12] MEDS ORDERED: CEPH-588 PO (13:33)
[2022-04-12] MEDS ORDERED: IBUP-2213 PO (13:33)
--- NOTE | 2022-04-12 13:39 | NUR ---
Patient discharged with v/s stable. Written and verbal after care instructions FOR CELLULITIS given and explained. Patient alert, oriented and verbalized understanding of instructions. Ambulatory with steady gait. All questions addressed prior to discharge. ID band removed. Patient advised to follow up with PMD. Rx of KELFEX AND IBUPROFEN given. Opportunity to ask questions provided and answered.
--- NOTE | 2022-04-12 13:40 | NUR ---
The patient's care was reviewed and supervised by Stacey Sabillon RN.
== END 2022-04-12 13:39 | disposition home or self-care (01) ==
LOC: MED 12:11
DX: L03.115 Cellulitis of right lower limb (principal); J45.909 Unspecified asthma, uncomplicated; I10 Essential (primary) hypertension; I25.10 Atherosclerotic heart disease of native coronary artery without angina pectoris; Z79.899 Other long term (current) drug therapy
CPT/HCPCS: 99283

== ENCOUNTER 2022-11-08 15:43 | Emergency (ER) | payer MEDICAID ==
[~2022-11-08] VITALS: Ht 162.6 cm; Wt 54.4 kg
[~2022-11-08 15:43] MED LIST changes: +CEPH-588 PO; +IBUP-2213 PO
[2022-11-08 15:56] VITALS: BP 116/67; PULSE 64; RESP 18; TEMP 98.2; O2SAT 98
[2022-11-08 16:50] VITALS: O2SAT 98
[2022-11-08] MEDS ORDERED: KETOROLAC 30 MG/ML VIAL IM ONE (16:50)
--- NOTE | 2022-11-08 16:54 | NUR ---
PATIENT PRESENTS TO ED WITH PAIN FROM A FALL IN A TREE. PT STATES PAIN HAS NOT GONE AWAY FOR 6 DAYS. PT STATES PAIN IS THE LEFT LOWER LEG THAT RADIATES ALL THE WAY UP. DENIES N/V/D; SKIN IS PINK/WARM/DRY; AAOX4 WITH EVEN AND STEADY GAIT; LUNGS CLEAR BL; HR EVEN AND REGULAR; PT DENIES ANY FEVER,CP,SOB,AT THIS TIME; PATIENT STATES PAIN OF 7/10 AT THIS TIME; VSS; PATIENT POSITIONED FOR COMFORT; HOB ELEVATED; BEDRAILS UP X2; BED DOWN. ER MD MADE AWARE OF PT STATUS. PMHX Emphysema HTN Mitro Valve prolapsed due to the heart murmor
[2022-11-08 17:00] VITALS: O2SAT 98
--- NOTE | 2022-11-08 17:01 | NUR ---
PT HAS BEEN CHANGED INTO GOWN AND SEEN BY PROVIDER. EXPLAINED TO PT WE ARE WAITING FOR ODERS FROM PROVIDER. CALL LIGHT WITH IN REACH.
--- NOTE | 2022-11-08 17:02 | NUR ---
PT HAS BEEN WRAPPED WITH GABY WRAP BY JUAN NAVARRO.
--- NOTE | 2022-11-08 17:04 | NUR ---
PT INSTUCTED HOW TO USE CALL LIGHT. CALL LIGHT WITH IN REACH OF PT.
[2022-11-08] MEDS ORDERED: IBUPROFEN 800 MG TAB ONE (17:09)
[2022-11-08] MEDS ORDERED: IBUPROFEN 800 MG TAB PO ONE (17:10)
[2022-11-08] MEDS ORDERED: ACET-8905 PO (17:36)
[2022-11-08 17:47] VITALS: BP 116/67; PULSE 64; RESP 18; TEMP 98.2
--- NOTE | 2022-11-08 17:51 | NUR ---
The patient's care was reviewed and supervised by Abi Aguilar, RN, RN.
--- NOTE | 2022-11-08 17:51 | NUR ---
Patient discharged with v/s stable. Written and verbal after care instructions given and explained. Patient verbalized understanding. Ambulatory with to car. All questions addressed prior to discharge. Advised to follow up with PMD.
== END 2022-11-08 17:51 | disposition home or self-care (01) ==
LOC: MED 15:43
DX: S83.92XA Sprain of unspecified site of left knee, initial encounter (principal); J44.9 Chronic obstructive pulmonary disease, unspecified; I10 Essential (primary) hypertension; Z79.899 Other long term (current) drug therapy; Z88.2 Allergy status to sulfonamides; Z88.8 Allergy status to other drugs, medicaments and biological substances; W14.XXXA Fall from tree, initial encounter; Y93.89 Activity, other specified; Y92.89 Other specified places as the place of occurrence of the external cause; Y99.8 Other external cause status
CPT/HCPCS: 99282

== ENCOUNTER 2023-02-15 05:19 | Emergency (ER) | payer MEDICAID ==
[~2023-02-15] VITALS: Ht 154.9 cm; Wt 74.8 kg
[~2023-02-15 05:19] MED LIST changes: +ACET-8905 PO
[2023-02-15 05:30] VITALS: BP 114/74; PULSE 60; RESP 16; O2SAT 98
[2023-02-15] MEDS ORDERED: IBUPROFEN 600 MG TAB PO ONE (06:35)
[2023-02-15] MEDS ORDERED: IBUP-2213 PO (06:40)
[2023-02-15 06:54] VITALS: BP 114/74; PULSE 60; RESP 16; TEMP 97.2; O2SAT 98
== END 2023-02-15 06:54 | disposition home or self-care (01) ==
LOC: MED 05:19
DX: S62.171A Displaced fracture of trapezium [larger multangular], right wrist, initial encounter for closed fracture (principal); J45.909 Unspecified asthma, uncomplicated; J44.9 Chronic obstructive pulmonary disease, unspecified; I11.9 Hypertensive heart disease without heart failure; Z88.2 Allergy status to sulfonamides; Z91.040 Latex allergy status; Z79.899 Other long term (current) drug therapy; W01.198A Fall on same level from slipping, tripping and stumbling with subsequent striking against other object, initial encounter; Y93.89 Activity, other specified; Y92.89 Other specified places as the place of occurrence of the external cause; Y99.8 Other external cause status
CPT/HCPCS: 29125; 73110; 99283; Q0092

== ENCOUNTER 2024-01-28 19:11 | Emergency (ER) | payer MEDICAID ==
[~2024-01-28] VITALS: Ht 154.9 cm; Wt 70.8 kg
[2024-01-28 19:12] VITALS: BP 128/79; PULSE 68; RESP 18; TEMP 97.6; O2SAT 98
[2024-01-28] MEDS: ALUMINUM HYD/MAG/SIMETHICONE 30 ML UDC PO ONE (19:54)
[2024-01-28 20:02] VITALS: O2SAT 99
== END 2024-01-28 21:31 | disposition left against medical advice (07) ==
LOC: MED 19:11
DX: R07.9 Chest pain, unspecified (principal); R06.02 Shortness of breath; R10.9 Unspecified abdominal pain; L03.113 Cellulitis of right upper limb; J44.9 Chronic obstructive pulmonary disease, unspecified; I10 Essential (primary) hypertension; F15.90 Other stimulant use, unspecified, uncomplicated; Z79.899 Other long term (current) drug therapy; Z79.82 Long term (current) use of aspirin; Z88.2 Allergy status to sulfonamides; Z88.8 Allergy status to other drugs, medicaments and biological substances
CPT/HCPCS: 71045; 93005; 99283